=== PATIENT | male | born 1990 | race American Indian/Alaskan Native ===

== ENCOUNTER 2018-06-09 20:11 | Emergency (ER) | payer OTHER ==
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
[2018-06-09] MEDS ORDERED: ULTRAM PO ONE (22:06)
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
[2018-06-09 23:31] VITALS: BP 122/78
== END 2018-06-09 23:32 | disposition home or self-care (01) ==
LOC: ED 20:11
DX: S16.1XXA Strain of muscle, fascia and tendon at neck level, initial encounter (principal); S29.012A Strain of muscle and tendon of back wall of thorax, initial encounter; V49.59XA Passenger injured in collision with other motor vehicles in traffic accident, initial encounter; Y93.89 Activity, other specified; Y92.410 Unspecified street and highway as the place of occurrence of the external cause; Y99.8 Other external cause status
CPT/HCPCS: 72072